=== PATIENT | female | born 1990 | race Caucasian/White ===

== ENCOUNTER → 2018-07-19 | Outpatient (CLI) | payer BC ==
[~2018-07-19] MED LIST: CYCL10 PO; HYDACE5 PO; IBUP800; MALOXICAM; NAPR500 PO; OCELLA; OXYACE5T PO; PHENTERMINE; RANI150 PO; RXHYDACE PO; Verotin-Gr Cap1 EACH PO
== END ==
LOC: LAB SHORT 14:16 → LAB 14:16
DX: Z11.59 Encounter for screening for other viral diseases (principal); Z01.84 Encounter for antibody response examination
CPT/HCPCS: 86787

== ENCOUNTER 2023-03-20 11:02 | Inpatient (IN) | payer OTHER ==
[2023-03-20] VITALS (27 sets, daily range): BP systolic 92–131; BP diastolic 50–79
[~2023-03-20] VITALS: Ht 160 cm; Wt 111.4 kg
[2023-03-20 11:51] LABS: BASOPHILS ABSOLUTE AUTO 0.04 K/mm3 (0.00-0.23); BASOPHILS PERCENT AUTO 0 % (0-2); EOSINOPHILS ABSOLUTE AUTO 0.01 K/mm3 (0.00-0.68); EOSINOPHILS PERCENT AUTO 0 % (0-6); Hematocrit 39.4 % (33.0-51.0); IMMATURE GRAN ABSOLUTE AUTO 0.12 K/mm3 (0.00-0.10); IMMATURE GRAN PERCENT AUTO 1 % (0-1); LYMPHOCYTES ABSOLUTE AUTO 1.27 K/mm3 (0.84-5.20); LYMPHOCYTES PERCENT AUTO 5 % (21-46); MONOCYTES ABSOLUTE AUTO 0.58 K/mm3 (0.16-1.47); MONOCYTES PERCENT AUTO 2 % (4-13); Mean Corpuscular HGB Conc 35.5 g/dL (31.5-36.5); Mean Corpuscular Volume 79 fL (80-100); Mean Platelet Volume 10.3 fL (9.1-12.4); NEUTROPHILS ABSOLUTE AUTO 21.73 K/mm3 (1.96-9.15); NEUTROPHILS PERCENT AUTO 92 % (41-73); Platelet Count 285 K/mm3 (150-400); RDW Standard Deviation 42.6 fL (35.1-46.3); White Blood Cell Count 23.75 K/mm3 (4.00-11.30)
[2023-03-21] VITALS (22 sets, daily range): BP systolic 89–144; BP diastolic 50–103
[2023-03-21 01:55] LABS: PO2 Cord - Arterial < 16 mmHg (16-20); pH Cord - Arterial 7.11 (7.28-7.35)
[2023-03-21 01:57] LABS: PCO2 Cord - Venous 52.3 mmHg (40-50); PO2 Cord - Venous < 16 mmHg (28-32); pH Umbilical Cord - Venous 7.21 (7.26-7.35)
[2023-03-21 14:17] LABS: BASOPHILS ABSOLUTE AUTO 0.03 K/mm3 (0.00-0.23); BASOPHILS PERCENT AUTO 0 % (0-2); EOSINOPHILS ABSOLUTE AUTO 0.07 K/mm3 (0.00-0.68); EOSINOPHILS PERCENT AUTO 0 % (0-6); Hemoglobin 11.2 g/dL (11.5-16.0); IMMATURE GRAN PERCENT AUTO 1 % (0-1); LYMPHOCYTES ABSOLUTE AUTO 2.01 K/mm3 (0.84-5.20); LYMPHOCYTES PERCENT AUTO 13 % (21-46); MONOCYTES ABSOLUTE AUTO 0.58 K/mm3 (0.16-1.47); MONOCYTES PERCENT AUTO 4 % (4-13); Mean Corpuscular HGB 27.4 pg (26.0-34.0); Mean Corpuscular HGB Conc 33.9 g/dL (31.5-36.5); Mean Corpuscular Volume 81 fL (80-100); Mean Platelet Volume 10.4 fL (9.1-12.4); NEUTROPHILS PERCENT AUTO 83 % (41-73); Platelet Count 229 K/mm3 (150-400); RDW Coefficient Variation 15.3 % (11.7-14.2); RDW Standard Deviation 44.2 fL (35.1-46.3); Red Blood Cell Count 4.09 M/mm3 (3.80-5.20); White Blood Cell Count 16.09 K/mm3 (4.00-11.30)
[2023-03-22 00:03] VITALS: BP 116/64
[2023-03-22 07:19] VITALS: BP 115/56
[2023-03-22 09:58] VITALS: BP 126/65
[2023-03-22 14:50] VITALS: BP 122/60
--- NOTE | 2023-03-22 15:08 | NUR ---
DISCHARGED HOME WITH
== END 2023-03-22 15:05 | disposition home or self-care (01) | DRG 788 ==
LOC: OBS 11:02 → BC 11:11
PROVIDERS: ADMIT Obstetrics & Gynecology
PROC: 10H07YZ Insertion of Other Device into Products of Conception, Via Natural or Artificial Opening (ICD-10-PCS; 2023-03-20)
PROC: 4A1H7CZ Monitoring of Products of Conception, Cardiac Rate, Via Natural or Artificial Opening (ICD-10-PCS; 2023-03-20)
PROC: 10H073Z Insertion of Monitoring Electrode into Products of Conception, Via Natural or Artificial Opening (ICD-10-PCS; 2023-03-20)
PROC: 10D00Z1 Extraction of Products of Conception, Low, Open Approach (ICD-10-PCS; principal; 2023-03-21 00:30)
DX: O42.12 Full-term premature rupture of membranes, onset of labor more than 24 hours following rupture (principal); O48.0 Post-term pregnancy; Z37.0 Single live birth; Z3A.41 41 weeks gestation of pregnancy; O62.1 Secondary uterine inertia; O34.211 Maternal care for low transverse scar from previous cesarean delivery; O99.824 Streptococcus B carrier state complicating childbirth; Z88.0 Allergy status to penicillin; O77.0 Labor and delivery complicated by meconium in amniotic fluid
CPT/HCPCS: 36415; 51702; 82803; 85025; 86850; 86900; 86901; 86923; A9270; C1751; J0171; J0456; J0690; J1200; J1885; J2001; J2371; J2405; J2590; J2765; J3010; J7050; J7120

== ENCOUNTER 2023-07-08 19:28 | Emergency (ER) | payer OTHER ==
[~2023-07-08] VITALS: Ht 160 cm; Wt 108.9 kg
[2023-07-08] MEDS ORDERED: Ibuprofen 400 MG Tab PO ONE (20:05)
[2023-07-08] MEDS ORDERED: HYDROcodone 5-APAP 325 TAB PO ONE (20:05)
[2023-07-08] MEDS ORDERED: RX Prepack 6 Tabs Oxycodone 5mg UD ONE (22:35)
[2023-07-08 22:40] VITALS: BP 138/82
== END 2023-07-08 22:41 | disposition home or self-care (01) ==
LOC: ER 19:28
DX: S92.341A Displaced fracture of fourth metatarsal bone, right foot, initial encounter for closed fracture (principal); S63.502A Unspecified sprain of left wrist, initial encounter; T22.112A Burn of first degree of left forearm, initial encounter; T20.17XA Burn of first degree of neck, initial encounter; T31.0 Burns involving less than 10% of body surface; V49.9XXA Car occupant (driver) (passenger) injured in unspecified traffic accident, initial encounter; Z88.0 Allergy status to penicillin
CPT/HCPCS: 29515; 73110; 73630; 99284-25; A9270